=== PATIENT | male | born 1965 | race African-American/Black ===

== ENCOUNTER 2024-09-30 14:05 | Emergency (ER) | payer OTHER ==
[~2024-09-30] VITALS: Ht 180.3 cm; Wt 82.0 kg
[2024-09-30 14:18] VITALS: O2SAT 97
[2024-09-30 16:06] LABS: BASOPHILS % 1.2 % (0.0-2.0); EOSINOPHILS % 1.4 % (0.0-5.0); HEMATOCRIT. 38.1 % (42.0-52.0); HEMOGLOBIN. 12.5 g/dL (14.0-18.0); LYMPHOCYTES % 26.2 % (20.0-50.0); MEAN CORPUSCULAR HEMOGLOBIN 32.8 pg (28.0-32.0); MEAN CORPUSCULAR HGB CONC 32.9 g/dL (31.0-37.0); MEAN CORPUSCULAR VOLUME 99.9 fL (80.0-94.0); MEAN PLATELET VOLUME 6.5 fl (7.4-10.4); MONOCYTES % 8.5 % (2.0-8.0); NEUTROPHILS % 62.7 % (40.0-76.0); PLATELET 384 x1000/uL (130-400); RED BLOOD CELL COUNT 3.81 mill/uL (4.7-6.1); RED CELL DISTRIBUTION WIDTH 16.7 % (11.6-14.6); WHITE BLOOD COUNT 4.8 x1000/uL (4.5-11.0)
[2024-09-30 16:17] LABS: CARBON DIOXIDE 27 mEq/L (21-32); CHLORIDE 107 mEq/L (98-107); SODIUM 142 mEq/L (136-145)
[2024-09-30 16:18] LABS: CALCIUM 9.2 mg/dL (8.7-10.4)
[2024-09-30 16:19] LABS: PROTHROMBIN TIME 10.5 sec (9.6-11.0)
[2024-09-30 16:22] LABS: CREATININE 0.8 mg/dL (0.6-1.3)
[2024-09-30 16:23] LABS: GLUCOSE 87 mg/dL (70-105); UREA NITROGEN BLOOD 6 mg/dL (9-23)
[2024-09-30 16:24] LABS: ETHANOL BLOOD 207 mg/dL (<10)
[2024-09-30] MEDS ORDERED: CALC500T6 MT (16:55)
[2024-09-30] MEDS ORDERED: CALCIUM CARBONATE 500MG TABLET CHEW PO SCH (17:00)
[2024-09-30 18:22] VITALS: BP 128/88; PULSE 98; RESP 18; TEMP 36.9; O2SAT 97
== END 2024-09-30 18:23 | disposition home or self-care (01) ==
LOC: ER 14:05
DX: R14.3 Flatulence (principal); F17.200 Nicotine dependence, unspecified, uncomplicated; Z90.49 Acquired absence of other specified parts of digestive tract
CPT/HCPCS: 36415; 80048; 80320; 85025; 99283; G0480